=== PATIENT | female | born 1965 | race American Indian/Alaskan Native ===

== ENCOUNTER 2017-12-09 03:23 | Emergency (ER) | payer OTHER ==
[2017-12-09] MEDS ORDERED: Aspirin 81 MG Tab.Chew PO ONE (03:24)
[2017-12-09] MEDS ORDERED: Morphine 2 MG/ML Syringe IVPUSH ONE (03:24)
[2017-12-09] MEDS ORDERED: Sodium Chloride 0.9% 1,000 ML IV ONE (03:24)
--- NOTE | 2017-12-09 03:27 | EDM.PDOC ---
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 Past medical history: As per history of present illness and as reviewed below otherwise noncontributory. Surgical history: As per history of present illness and as reviewed below otherwise noncontributory. Social history: No reported history of drug or alcohol abuse. Family history: As per history of present illness and as reviewed below otherwise noncontributory. Physical exam: HEENT: Atraumatic, normocephalic, pupils reactive, negative for conjunctival pallor or scleral icterus, mucous membranes moist, throat clear, neck supple, nontender, trachea midline. Lungs: Clear to auscultation, breath sounds equal bilaterally, chest nontender. Heart: S1S2, regular, negative for clicks, rubs, or JVD. Abdomen: Soft, nondistended, nontender. Negative for masses or hepatosplenomegaly. Negative for costovertebral tenderness. Pelvis: Stable nontender. Genitourinary: Deferred. Rectal: Deferred. Extremities: Atraumatic, negative for cords or calf pain. Neurovascular unremarkable. Neuro: Awake, alert, oriented. Cranial nerves II through XII unremarkable. Cerebellum unremarkable. Motor and sensory unremarkable throughout. Exam nonfocal. Diagnostics: [CBC CMP troponin INR EKG Chest 1 view ] Therapeutics: [Aspirin 324 mg chewable Nitroglycerin sublingual--pain improved to 2 out of 10 with third nitroglycerin Morphine 2 mg IV Lopressor 5 mg IV Heparin 5000 units IV followed by 12 units per kilogram per hour ] Impression: [ acute coronary syndrome ] Definitive disposition and diagnosis as appropriate pending reevaluation and review of above. Left Chest Pain Score (Numeric/FACES): 6 - Related Data Allergies Allergy/AdvReac Type Severity Reaction Status Date / Time ampicillin Allergy Other Verified 12/09/17 03:36 Home Meds: Home Meds Cetirizine HCl [Allergy Relief] 10 mg PO DAILY 12/09/17 [History] Ramipril 5 mg PO DAILY 12/09/17 [History] Ranitidine HCl 150 mg PO BID 12/09/17 [History] metFORMIN HCl [Glucophage XR] 750 mg PO WITHDINNER 12/09/17 [History] ED ROS ENT - Review of Systems Review Of Systems: See Below ED EXAM, ENT - Physical Exam Exam: See Below Course - Vital Signs Last Recorded V/S: Last Vital Signs Temp 97.9 F 12/09/17 03:33 Pulse 88 12/09/17 03:56 Resp 22 H 12/09/17 03:33 BP 148/89 H 12/09/17 03:56 Pulse Ox 97 12/09/17 03:33 - Orders/Labs/Meds Orders: Active Orders 24 hr Category Date Time Status EKG Documentation Completion [RC] STAT Care 12/09/17 03:25 Active Chest 1V Frontal [CR] Stat Exams 12/09/17 03:25 Taken COMPREHENSIVE METABOLIC PN,CMP [CHEM] Stat Lab 12/09/17 03:25 Received LIPASE [CHEM] Stat Lab 12/09/17 03:25 Received TROPONIN I [CHEM] Stat Lab 12/09/17 03:25 Received UA W/MICROSCOPIC [URIN] Stat Lab 12/09/17 03:24 Ordered Heparin Sod,Pork In 0.45% Nacl [Heparin-1/2Ns 25,000 Med 12/09/17 04:00 Pending Units/500] 25,000 unit in 500 ml IV TITRATE Sodium Chloride 0.9% [Normal Saline] 1,000 ml Med 12/09/17 03:24 Active IV STAT Medication Orders Sodium Chloride (Normal Saline) 1,000 mls @ 999 mls/hr IV STAT ONE Stop: 12/09/17 04:24 Last Admin: 12/09/17 03:33 Dose: 999 mls/hr Labs: Laboratory Tests 12/09/17 12/09/17 Range/Units 03:25 03:25 WBC 17.27 H (4.0-11.0) K/uL RBC 4.82 (4.30-5.90) M/uL Hgb 15.2 (12.0-16.0) g/dL Hct 43.1 (36.0-46.0) % MCV 89.4 (80.0-98.0) fL MCH 31.5 (27.0-32.0) pg MCHC 35.3 (31.0-37.0) g/dL RDW Std Deviation 40.6 (28.0-62.0) fl RDW Coeff of [place] 13 (11.0-15.0) % Plt Count 263 (150-400) K/uL MPV 11.00 (7.40-12.00) fL Neut % (Auto) 68.1 (48.0-80.0) % Lymph % (Auto) 24.9 (16.0-40.0) % [place] % (Auto) 5.6 (0.0-15.0) % Eos % (Auto) 1.1 (0.0-7.0) % Baso % (Auto) 0.3 (0.0-1.5) % Neut # (Auto) 11.8 H (1.4-5.7) K/uL Lymph # (Auto) 4.3 H (0.6-2.4) K/uL [place] # (Auto) 1.0 H (0.0-0.8) K/uL Eos # (Auto) 0.2 (0.0-0.7) K/uL Baso # (Auto) 0.1 (0.0-0.1) K/uL Nucleated RBC % 0.0 /100WBC Nucleated RBCs # 0 K/uL INR 0.94 Meds: Medications Generic Name Dose Route Start Last Admin Trade Name Freq PRN Reason Stop Dose Admin Sodium Chloride 1,000 mls @ 999 mls/hr 12/09/17 03:24 12/09/17 03:33 Normal Saline IV 12/09/17 04:24 999 mls/hr STAT ONE Administration Discontinued Medications Generic Name Dose Route Start Last Admin Trade Name Freq PRN Reason Stop Dose Admin Aspirin 324 mg 12/09/17 03:24 12/09/17 03:33 Aspirin PO 12/09/17 03:25 324 mg ONETIME ONE Administration Heparin Sodium (Porcine) 5,000 units 12/09/17 03:58 Heparin Sodium IVPUSH 12/09/17 03:59 ONETIME ONE Metoprolol Tartrate 5 mg 12/09/17 03:30 12/09/17 03:56 Lopressor IVPUSH 12/09/17 03:41 5 mg Q5M LINDY Administration Morphine Sulfate 2 mg 12/09/17 03:24 12/09/17 03:34 Morphine IVPUSH 12/09/17 03:25 2 mg ONETIME ONE Administration Nitroglycerin 0.4 mg 12/09/17 03:24 12/09/17 03:46 Nitrostat SL 0.4 mg Q5M PRN Administration Chest Pain Ondansetron HCl 8 mg 12/09/17 03:48 12/09/17 03:55 Zofran IVPUSH 12/09/17 03:49 8 mg ONETIME ONE Administration Pantoprazole Sodium 80 mg 12/09/17 03:48 12/09/17 03:55 Protonix Iv IVPUSH 12/09/17 03:49 80 mg .BOLUS ONE Administration Departure - Departure Time of Disposition: 04:02 Disposition: DC/Tfer to Other 70 Condition: Fair Clinical Impression: Acute coronary syndrome - Discharge Information Referrals: PCP,None [Primary Care Provider] - - My Orders Last 24 Hours: My Active Orders 12/09/17 03:24 UA W/MICROSCOPIC [URIN] Stat Sodium Chloride 0.9% [Normal Saline] 1,000 ml IV STAT 12/09/17 03:25 EKG Documentation Completion [RC] STAT Chest 1V Frontal [CR] Stat COMPREHENSIVE METABOLIC PN,CMP [CHEM] Stat LIPASE [CHEM] Stat TROPONIN I [CHEM] Stat 12/09/17 04:00 Heparin Sod,Pork In 0.45% Nacl [Heparin-1/2Ns 25,000 Units/500] 25,000 unit in 500 ml IV TITRATE - Assessment/Plan Last 24 Hours: My Active Orders 12/09/17 03:24 UA W/MICROSCOPIC [URIN] Stat Sodium Chloride 0.9% [Normal Saline] 1,000 ml IV STAT 12/09/17 03:25 EKG Documentation Completion [RC] STAT Chest 1V Frontal [CR] Stat COMPREHENSIVE METABOLIC PN,CMP [CHEM] Stat LIPASE [CHEM] Stat TROPONIN I [CHEM] Stat 12/09/17 04:00 Heparin Sod,Pork In 0.45% Nacl [Heparin-1/2Ns 25,000 Units/500] 25,000 unit in 500 ml IV TITRATE
[2017-12-09] MEDS ORDERED: Metoprolol Tartrate 5 MG/5 ML SDV IVPUSH SCH (03:30)
[2017-12-09] MEDS: Nitroglycerin 0.4 MG Tab.SL SL PRN ×3 (03:35→03:46)
[2017-12-09] MEDS ORDERED: Ondansetron 4 MG/2 ML SDV IVPUSH ONE (03:48)
[2017-12-09] MEDS ORDERED: Pantoprazole 40 MG Vial IVPUSH ONE (03:48)
[2017-12-09] MEDS ORDERED: Heparin Sodium 5,000 Units/ML Vial IVPUSH ONE (03:58)
[2017-12-09 04:00] LABS: CHLORIDE,CL 102 mmol/L (98-107); SODIUM,NA 140 mmol/L (136-145)
[2017-12-09] MEDS ORDERED: Heparin Sod,Pork In 0.45% Nacl 25,000 UNIT/500 ML IV.SOLN IV ONE (04:09)
[2017-12-09] MEDS ORDERED: Sodium Chloride 0.9% 1,000 ML IV SCH (04:15)
[2017-12-09] MEDS ORDERED: Heparin Sod,Pork In 0.45% Nacl 25,000 UNIT/500 ML IV.SOLN IV STA (04:17)
[2017-12-09] MEDS: Heparin Sod,Pork In 0.45% Nacl 25,000 UNIT/500 ML IV.SOLN IV SCH ×2 (04:24→04:28)
--- NOTE | 2017-12-10 14:54 | CR ---
EXAM DATE: 12/09/17 PATIENT'S AGE: 52 Patient: BONNIE SENA Facility: [place], [place] Site . Site : [id number] Study: XRay Chest [id number]/17/2018 3:48:57 AM Ordering Physician: Doctor Choa Final Report: Indication: Chest pain Technique: Chest 1 view Comparison: None Findings/Impression: Normal cardiomediastinal silhouette. Clear lungs and pleural spaces. No acute osseous abnormality. Dictated by Supriya Desir MD @ Dec 09 2017 3:59AM (Electronic Signature) Report Signed by Proxy. [email or web address]
== END 2017-12-09 05:06 | disposition other institution (70) ==
LOC: MW.ED 03:23
DX: I24.9 Acute ischemic heart disease, unspecified (principal); Z88.1 Allergy status to other antibiotic agents; Z79.899 Other long term (current) drug therapy
CPT/HCPCS: 71045; 80053; 83690; 84484; 85025; 85610; 93005; 96361; 96365; 96375; 99285; A9270; C9113; J1644; J2270; J2405; J7040